=== PATIENT | female | born 1950 | race Caucasian/White ===

== ENCOUNTER 2017-05-23 17:13 | Inpatient (IN) | payer MEDICARE, MEDICAID ==
--- NOTE | 2017-05-23 17:58 | RAD ---
PORTABLE CHEST 05/23/17 PROVIDED CLINICAL HISTORY: Shortness of breath. FINDINGS: Comparison 04/30/16. The cardiac silhouette is somewhat obscured by what is presumably the diaphragm or possibly a large h iatal hernia. There is development of right hemithoracic air space disease involving much of the righ t lung. Bilateral pleural effusions are suspected. There is no evidence of pneumothorax. Atherosclero sis involves the aortic arch. IMPRESSION: 1. Development of right hemithoracic air space disease compatible with pneumonia in the appropri ate clinical context. 2. Abnormal appearance of the upper chest and lower abdomen of uncertain etiology and significan ce. Correlation with a lateral view is recommended. POS: [facility]
[2017-05-23 18:10] LABS: Hemoglobin 9.7 g/dL (12.0-16.0); Mean Corpuscular HGB CONC 31.5 g/dL (32.0-36.0); Mean Corpuscular Hemoglobin 30.9 pg (27.0-31.0); Mean Corpuscular Volume 98.1 fl (81.0-99.0); Platelet Count 382 thou/uL (130-400); RBC Distribution Width 15.3 % (11.5-14.5); Red Blood Cell (RBC) Count 3.14 mill/uL (4.20-5.40); White Blood Cell (WBC) Count 24.8 thou/uL (4.8-10.8)
[2017-05-23] MEDS ORDERED: methylPREDNISolone Sod Succ/PF 125 MG/2 ML VIAL ONE (18:19)
[2017-05-23] MEDS ORDERED: Water For Inject, Bacteriostat 30 ML ONE (18:19)
[2017-05-23 18:22] LABS: Lymphocytes 3 % (21-51); MDiff Complete? YES; Monocytes 1 % (0-10); Neutrophil 96 % (42-75); Ovalocytes SLIGHT = 2-5 cells (100X) (0-1/hpf); PLT Morphology Comment Appears Adequate; Polychromasia SLIGHT = 2-3 cells (100X) (0-2/hpf)
[2017-05-23 18:29] LABS: ALT (SGPT) 9 U/L (8-55); AST (SGOT) 9 U/L (5-34); Alkaline Phosphatase 84 U/L (40-150); Anion Gap 13 mmol/L (10-20); BUN (Urea Nitrogen) 13 mg/dL (9.8-20.1); Bilirubin, Total 0.3 mg/dL (0.2-1.2); CK (CPK) 26 U/L (29-168); Calc. Creatinine Clearance 0 mL/min (70-130); Calcium 8.6 mg/dL (7.8-10.44); Carbon Dioxide 33 mmol/L (23-31); Chloride 99 mmol/L (98-107); Estimated GFR-MDRD 75; Globulin 2.7 g/dL (2.4-3.5); Glucose 121 mg/dL (80-115); Protein, Total 5.7 g/dL (6.0-8.3); Sodium 142 mmol/L (136-145)
[2017-05-23 18:34] LABS: CKMB 2.3 ng/mL (0-6.6); Troponin I 0.045 ng/mL (< 0.028)
[2017-05-23 18:37] LABS: Potassium 2.9 mmol/L (3.5-5.1)
[2017-05-23] MEDS ORDERED: Piperacillin/Tazobactam 4.5 GM in Sodium Chloride 0.9% 100 ML IVPB SCH (21:15)
[2017-05-23 23:09] LABS: Troponin I 0.048 ng/mL (< 0.028)
[2017-05-24 00:43] VITALS: BMI 25.4
[2017-05-24 01:58] LABS: Troponin I 0.046 ng/mL (< 0.028)
[2017-05-24] MEDS ORDERED: Albuterol Sulfate 2.5 mg/3 ml Neb NEB PRN (02:56)
[2017-05-24] MEDS ORDERED: HYDROcodone/Acetaminophen 10/325 mg Tablet PO PRN (02:56)
[2017-05-24] MEDS ORDERED: Acetaminophen 325 MG TAB PO PRN (02:56)
[2017-05-24] MEDS: Ondansetron ODT 4 MG TAB PO PRN ×2 (03:27→20:33)
--- NOTE | 2017-05-24 04:57 | HP ---
PRIMARY CARE PHYSICIAN: Dr. Cale Kunz The patient does not have a english faculty member up here. She does have a bullard operator over at [facility]. DATE OF ADMISSION: 05/24/2017 TIME OF SERVICE: 0100 CHIEF COMPLAINT: Shortness of breath. HISTORY OF PRESENT ILLNESS: Ms. Bryan is a 67-year-old female with history of COPD, chronic hypoxe christiano respiratory failure, hyperlipidemia, hypertension, coronary artery disease, ongoing tobacco abuse , supraventricular tachycardia and a past history of head injury. The patient was recently hospitali zed from 05/05/2017 to 05/21/2017 over at [facility] and was discharged home on 0 05/21/2017 with oxygen, prednisone, antibiotics and her regular home medications. When she eft the hospital she was given a green oxygen tank to transport home in, I am assuming that home care or the oxygen company was supposed to meet her there and provide her the oxygen concentrato r and portable unit, but apparently that never happened. She became progressively more short of breath from 05/21/2017 until today and was brought to the [facility] department after she called EMS. Her oxygen tank per EMS report was empty. Medications were reviewed. She does not have her steroids, does not have her antibiotics and says th at somebody took her nebulizer, so she has not got any nebulizer treatments, steroids or antibiotics in the last few days either. She denies any fevers or chills. Does have a hot and cold spells. No nausea, vomiting, diarrhea, co nstipation. She is not having hemoptysis. She does have a chronic cough. PAST MEDICAL HISTORY: 1. COPD. 2. Chronic hypoxic respiratory failure. 3. Hyperlipidemia. 4. Hypertension. 5. Coronary artery disease. 6. Tobacco abuse. 7. Supraventricular tachycardia. 8. Past head injury. PAST SURGICAL HISTORY: 1. PTCA and stent placements. 2. Hysterectomy. 3. Back surgery in 1979. 4. Craniotomy 1969 for head injury and bleed. 5. Right leg surgery. 6. Cardiac ablation. 7. Foot surgery. 8. Bilateral wrist and hand surgery. HOME MEDICATIONS: That she is supposed to be on: 1. Tramadol 50 mg p.o. p.r.n. pain. 2. Aspirin 325 daily. 3. Albuterol nebs 2.5 mg nebulized q.4 hours p.r.n. 4. Advair 250/50 two puffs b.i.d. 5. Toprol-XL 50 mg daily. 6. Lisinopril 10 mg p.o. b.i.d. 7. Prednisone 10 mg daily on a taper. Of note, she has no prednisone, lisinopril, Toprol-XL, nebulizer for her albuterol, but does have her aspirin. ALLERGIES: NKDA. FAMILY HISTORY: Negative for clotting or bleeding disorder, no immune dysfunction. She has very lit tle help at home. SOCIAL HISTORY: Significant for half pack of cigarettes per day. She says she has quit, but does prakash ve an occasional cigarette. No alcohol or IV drug use. REVIEW OF SYSTEMS: A 10-point review of systems was performed, negative for all systems except as pe r HPI. Incidentally now she is back on nebulizer treatments, steroids, and oxygen. She is feeling much bett er now. PHYSICAL EXAMINATION: VITAL SIGNS: Temperature on arrival to the ER 98.5, pulse 108, blood pressure 191/47, respiratory ra te 24, satting 80% on room air, current temperature is 99.4, pulse 104, blood pressure 125/77, respir atory 18, satting 91-92% on 2 liters nasal cannula. GENERAL: She is awake. She is alert. She is oriented x3. She is a disheveled looking white female , appears to be in no acute distress. HEENT: Normocephalic and atraumatic. Pupils equal, round, react to light bilaterally, mucous membra wen are moist. There is no visible lesion. No thrush. Nasal cannula is in place. NECK: Supple. There is no lymphadenopathy, JVD or thyromegaly. She has normal carotid upstrokes bi laterally. I do not appreciate any bruits. LUNGS: Clear anteriorly. She has slightly poor inspiratory phase. 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 There is no overt wheezes or rhonchi heard. CARDIOVASCULAR: She is tachycardic, but regular. Normal S1 and S2. There is no S3 or S4. She has also a holosystolic murmur 2/6 at the apex, and a 3/6 systolic ejection murmur in the right upper shanelle rnal border. ABDOMEN: Soft, it is nontender, nondistended. She has no rebound, rigidity or guarding. There is g ood bowel sounds present. EXTREMITIES: No cyanosis or clubbing. Does have edema bilateral lower extremities from the mid tibi al level down, 1+ pitting. SKIN: Otherwise warm, moist and well perfused without any rashes or lesions. MUSCULOSKELETAL: Exam is normal to inspection. She has no inflamed joints. No deformities and no p alpable effusions. NEUROLOGIC: Cranial nerves II-XII are grossly intact. Speech pattern is completely normal. She has no focal deficits and has 5/5 strength in all 4 extremities. LABORATORY DATA: Sodium 142, potassium 2.9, chloride 99, bicarbonate 33, BUN 13, creatinine 0.76, an d glucose 121. Calcium is 8.6. The liver functions are fairly normal. Total protein slightly low at 5.7, albumin slightly low at 3. 0. CBC showed a white count of 24.8 thousand. She has 96% granulocytosis secondary to steroids. He moglobin 9.7, hematocrit 30.8, and platelet count is 392,000. Chest x-ray showed right hemithorax ai r space disease. She said she had right-sided pneumonia previously. ASSESSMENT AND PLAN: 1. Acute exacerbation of chronic obstructive pulmonary disease, secondary to not taking any medicati ons for whatever reason. We will put her back on Solu-Medrol 40 mg q.6h., q.4h. DuoNebs and q.2h. p. r.n. DuoNebs. Place her on antibiotics with Levofloxacin 500 mg daily. 2. Acute on chronic hypoxic respiratory failure: The patient back on 2 liters of oxygen with a satu ration improving. We will need to arrange her for home oxygen with portable device, a concentrator a nd a portable that she can carry. Once that is arranged, I think she may be able to go home today. 3. Hyperlipidemia. Continue medications. 4. Hypertension. Continue home medications. 5. Coronary artery disease, no chest pain or difficulty. We will continue her on Toprol-XL and her lisinopril. 6. Ongoing tobacco abuse, counseling was offered. She said that she is done this time. 7. Supraventricular tachycardia, status post ablation. She remains on Toprol-XL.
[2017-05-24 05:33] LABS: Anion Gap 12 mmol/L (10-20); BUN (Urea Nitrogen) 14 mg/dL (9.8-20.1); Calc. Creatinine Clearance 73 mL/min (70-130); Calcium 7.9 mg/dL (7.8-10.44); Carbon Dioxide 33 mmol/L (23-31); Chloride 100 mmol/L (98-107); Estimated GFR-MDRD 78; Glucose 127 mg/dL (80-115); Sodium 142 mmol/L (136-145)
[2017-05-24 05:38] LABS: Potassium 2.9 mmol/L (3.5-5.1)
[2017-05-24 05:54] LABS: Band 3 % (5-11); Hemoglobin 8.8 g/dL (12.0-16.0); Lymphocytes 5 % (21-51); MDiff Complete? YES; Mean Corpuscular HGB CONC 31.5 g/dL (32.0-36.0); Mean Corpuscular Hemoglobin 31.3 pg (27.0-31.0); Mean Corpuscular Volume 99.4 fl (81.0-99.0); Mean Platelet Volume 7.3 fL (7.4-10.4); Neutrophil 92 % (42-75); Nucleated RBC 1 % (0); PLT Morphology Comment Appears Adequate; Platelet Count 344 thou/uL (130-400); RBC Distribution Width 15.5 % (11.5-14.5); Red Blood Cell (RBC) Count 2.81 mill/uL (4.20-5.40); White Blood Cell (WBC) Count 25.3 thou/uL (4.8-10.8)
[2017-05-24] MEDS: Famotidine 20 MG TAB PO SCH ×2 (07:58→20:33)
[2017-05-24] MEDS: Lisinopril 10 MG TAB PO SCH ×2 (07:59→20:33)
[2017-05-24] MEDS: guaiFENesin ER 600 MG TAB PO SCH ×2 (07:59→20:33)
--- NOTE | 2017-05-24 09:39 | RAD ---
PA AND LATERAL OF THE CHEST: COMPARISON: Prior single view of the chest dated 05/23/17. FINDINGS: There are worsening bibasilar opacities suspicious for pneumonia. Patchy opacities within the right upper lobe also likely related to pneumonia. There is a large hiatal hernia. There are bilateral pl eural effusions. There is prominent thoracic calcification involving the aorta and coronary arteries . IMPRESSION: 1. Findings suspicious for multifocal pneumonia. 2. Small bilateral pleural effusions with moderate cardiomegaly. Component of congestive heart fail ure is not excluded. 3. Extensive pneumonia has worsened since the comparison dated 05/23/17. 4. Prominent hiatal hernia. POS: [facility]
--- NOTE | 2017-05-24 10:26 | CT ---
CT CHEST NONCONTRAST: History: Pneumonia. Comparison: 07-20-02 FINDINGS: A small amount of bilateral pleural fluid and bibasilar atelectasis are present. Patchy infiltrate is present throughout the right upper lobe. Less pronounced infiltrates present within the posterior as pect of the left lung apex. Nodular parenchymal opacity at the right lung base could represent a mass partially obscured by infil trate and/or atelectasis. Lack of contrast limits evaluation of other abnormalities. No bulky adenopathy is apparent. There is calcification in the arterial structures. A large lobulated gas and soft tissue density containing st ructure within the posterior mediastinum contains flocculent material. It likely represents a very la rge hiatal hernia. Remainder of the esophagus is dilated with gas. IMPRESSION: 1. Multifocal pneumonia. Small bilateral pleural effusions. Bibasilar atelectasis is likely related t o the pleural fluid and very large hiatal hernia. 2. Atherosclerosis. POS: [facility]
--- NOTE | 2017-05-24 11:42 | PDOC.PN ---
- Subjective Encounter Start Date: 05/24/17 Encounter Start Time: 09:30 Subjective: breathing better but still sob -: no chest pain or palp - Objective Resuscitation Status: Resuscitation Status FULL:Full Resuscitation MAR Reviewed: Yes Vital Signs & Weight: Vital Signs (12 hours) Temp Pulse Resp BP Pulse Ox 05/24/17 09:25 97.3 F L 96 16 05/24/17 06:49 96 12 05/24/17 04:00 98.2 F 100 18 136/80 95 05/24/17 03:38 97.6 F 104 H 18 05/24/17 00:47 97.6 F 104 H 18 94 L 05/24/17 00:38 97.6 F 104 H 18 148/84 H 94 L Weight Weight 143 lb I&O: 05/23/17 05/24/17 05/25/17 06:59 06:59 06:59 Intake Total 510 Output Total 600 Balance -90 Result Diagrams: 05/24/17 04:35 05/24/17 04:35 Phys Exam - Physical Examination HEENT: PERRLA, sclera anicteric Neck: no JVD, supple Respiratory: no rales, wheezing present Cardiovascular: RRR, no significant murmur Gastrointestinal: soft, non-tender, no distention, positive bowel sounds Musculoskeletal: no edema, pulses present Neurological: non-focal, moves all 4 limbs Psychiatric: A&O x 3 Dx/Plan (1) PNA (pneumonia) Code(s): J18.9 - PNEUMONIA, UNSPECIFIED ORGANISM Status: Acute Qualifiers: Pneumonia type: due to unspecified organism Laterality: bilateral (2) Acute on chronic respiratory failure with hypoxemia Code(s): J96.21 - ACUTE AND CHRONIC RESPIRATORY FAILURE WITH HYPOXIA Status: Acute (3) COPD exacerbation Code(s): J44.1 - CHRONIC OBSTRUCTIVE PULMONARY DISEASE W (ACUTE) EXACERBATION Status: Acute (4) Non compliance with medical treatment Code(s): Z91.19 - PATIENT'S NONCOMPLIANCE W OTH MEDICAL TREATMENT AND REGIMEN Status: Chronic (5) CAD (coronary artery disease) Code(s): I25.10 - ATHSCL HEART DISEASE OF [place] CORONARY ARTERY W/O ANG PCTRS Status: Chronic Qualifiers: Coronary Disease-Associated Artery/Lesion type: [place] artery [place] vs. transplanted heart: [place] heart Associated angina: without angina Qualified Code(s): I25.10 - Atherosclerotic heart disease of [place] coronary artery without angina pectoris (6) HLD (hyperlipidemia) Code(s): E78.5 - HYPERLIPIDEMIA, UNSPECIFIED Status: Chronic Qualifiers: Hyperlipidemia type: unspecified Qualified Code(s): E78.5 - Hyperlipidemia , unspecified (7) HTN (hypertension) Code(s): I10 - ESSENTIAL (PRIMARY) HYPERTENSION Status: Chronic Qualifiers: Hypertension type: essential hypertension Qualified Code(s): I10 - Essential (primary) hypertension - Plan was hospitalized for pna/copd flare from to at [facility] -: pulm consult, CT results noted -: tx to med floor, replace potassium -: levaquin, steroids, nebs -: PT to mobilize as tolerated, swing bed for 2 weeks * . Review of Systems - Medications/Allergies Allergies/Adverse Reactions: Allergies Allergy/AdvReac Type Severity Reaction Status Date / Time No Known Drug Allergies Allergy Verified 04/30/16 23:14 Medications: Current Medications Acetaminophen (Tylenol) 650 mg PO Q4H PRN PRN Reason: Headache/Fever or Pain Hydrocodone Bitart/Acetaminophen ([place] 10/325) 1 tab PO Q4H PRN PRN Reason: Severe Pain (7-10) Last Admin: 05/24/17 03:23 Dose: 1 tab Hydrocodone Bitart/Acetaminophen ([place] 5/325) 1 tab PO Q4H PRN PRN Reason: Moderate Pain (4-6) Albuterol Sulfate (Ventolin) 2.5 mg NEB Q2H PRN PRN Reason: Wheezing Albuterol/Ipratropium (Duoneb) 3 ml NEB [id number] AAMIR Last Admin: 05/24/17 06:49 Dose: 3 ml Famotidine (Pepcid) 20 mg PO BID [facility] Last Admin: 05/24/17 07:58 Dose: 20 mg Guaifenesin (Mucinex) 1,200 mg PO Q12HR [facility] Last Admin: 05/24/17 07:59 Dose: 1,200 mg Levofloxacin 500 mg/ Device 100 mls @ 100 mls/hr IVPB Q24HR [facility] Last Admin: 05/24/17 08:23 Dose: 100 mls Lisinopril (Zestril) 10 mg PO BID [facility] Last Admin: 05/24/17 07:59 Dose: 10 mg Methylprednisolone Sodium Succinate (Solu-Medrol) 40 mg IVP Q6HR [facility] Metoprolol Succinate (Toprol Xl) 50 mg PO DAILY [facility] Last Admin: 05/24/17 07:59 Dose: 50 mg Ondansetron HCl (Zofran Odt) 4 mg PO Q6H PRN PRN Reason: Nausea/Vomiting Last Admin: 05/24/17 03:27 Dose: 4 mg Potassium Chloride (K-Dur) 40 meq PO Q6H [facility] Sodium Chloride (Flush - Normal Saline) 10 ml IVF Q12HR [facility] Last Admin: 05/24/17 08:24 Dose: 10 ml Sodium Chloride (Flush - Normal Saline) 10 ml IVF PRN PRN PRN Reason: Saline Flush
[2017-05-24] MEDS: methylPREDNISolone Sod Succ/PF 125 MG/2 ML VIAL IVP SCH ×2 (11:50→19:32)
[2017-05-24] MEDS: Potassium Chloride 20 MEQ TAB PO SCH ×2 (13:48→19:33)
[2017-05-24] MEDS: Mometasone/Formoterol 120 PUFF INHALER INH SCH (18:15)
[2017-05-24] MEDS: HYDROcodone/Acetaminophen 5/325 mg Tablet PO PRN (20:34)
[2017-05-25] MEDS: Potassium Chloride 20 MEQ TAB PO SCH ×4 (00:07→21:05)
[2017-05-25] MEDS: methylPREDNISolone Sod Succ/PF 125 MG/2 ML VIAL IVP SCH (00:07)
[2017-05-25] MEDS: HYDROcodone/Acetaminophen 5/325 mg Tablet PO PRN ×4 (00:08→13:34)
[2017-05-25] MEDS: Mometasone/Formoterol 120 PUFF INHALER INH SCH ×2 (06:32→18:34)
[2017-05-25 08:49] LABS: Anion Gap 14 mmol/L (10-20); BUN (Urea Nitrogen) 20 mg/dL (9.8-20.1); Calc. Creatinine Clearance 64 mL/min (70-130); Calcium 8.4 mg/dL (7.8-10.44); Carbon Dioxide 30 mmol/L (23-31); Chloride 102 mmol/L (98-107); Estimated GFR-MDRD 66; Glucose 153 mg/dL (80-115); Potassium 5.6 mmol/L (3.5-5.1); Sodium 140 mmol/L (136-145)
[2017-05-25 08:59] LABS: Hemoglobin 8.7 g/dL (12.0-16.0); Mean Corpuscular HGB CONC 30.4 g/dL (32.0-36.0); Mean Corpuscular Hemoglobin 30.9 pg (27.0-31.0); Mean Platelet Volume 7.2 fL (7.4-10.4); Platelet Count 361 thou/uL (130-400); RBC Distribution Width 15.5 % (11.5-14.5); Red Blood Cell (RBC) Count 2.81 mill/uL (4.20-5.40); White Blood Cell (WBC) Count 26.2 thou/uL (4.8-10.8)
[2017-05-25] MEDS ORDERED: Prevnar 13-Val Conj/PF 0.5 ML SYRINGE IM ONE (09:00)
[2017-05-25] MEDS ORDERED: FLU VACC TS2017-18 (>65YR) 0.5 ML SYRINGE IM ONE (09:00)
[2017-05-25] MEDS ORDERED: Aspirin 81 mg Enteric Coated Tablet PO SCH (09:00)
[2017-05-25] MEDS: guaiFENesin ER 600 MG TAB PO SCH (09:03)
[2017-05-25] MEDS: Famotidine 20 MG TAB PO SCH (09:03)
[2017-05-25] MEDS: Lisinopril 10 MG TAB PO SCH (09:03)
[2017-05-25 09:23] LABS: MDiff Complete? YES
[2017-05-25 09:24] LABS: Anisocytosis SLIGHT = 6-15 cells (100X) (0-5/hpf); Band 2 % (5-11); Hypochromia SLIGHT = 6-15 cells (100X) (0-5/hpf); Lymphocytes 2 % (21-51); Monocytes 3 % (0-10); Neutrophil 93 % (42-75); Ovalocytes SLIGHT = 2-5 cells (100X) (0-1/hpf); PLT Morphology Comment Appears Adequate
--- NOTE | 2017-05-25 14:15 | CON ---
DATE OF CONSULTATION: 05/25/2017 CONSULTING PHYSICIAN: Dr. Roe REASON FOR CONSULTATION: Abnormal CT of the chest. HISTORY OF PRESENT ILLNESS: Ms. Bryan is a 67-year-old female who was admitted to the hospital yesterday with increasing shortness of breath. Up until this hospitalization she has received her care at [facility]. She was mostly recently hospitalized there between 05/05/2017 and 05/21. I have been able to obtain partial medical records from that hospitalization and she was initially admitted here under similar circumstances as this admission with the additional complaint of atrial fibrillation. She was seen by their Hospitalist group. She was seen in pulmonology by Dr. Truong. The patient underwent some type of surgical procedure which sounds to be repair of hiatal hernia, although we do not have any operative reports from [facility] at this time to review. She says she has continued on oxygen at home. She has been coughing and been generally short of breath since discharge. In performing this consultation, I have reviewed records from [place] during this hospitalization, records from [facility] during her last hospitalization, and spoken to the patient in detail. PAST MEDICAL HISTORY: 1. COPD. 2. Chronic hypoxic respiratory failure. 3. Hiatal hernia. 4. Hyperlipidemia. 5. Paroxysmal atrial fibrillation. 6. Coronary artery disease. 7. Hypertension. 8. Tobacco abuse. 9. Myocardial infarction. 10. Pulmonary hypertension. 11. Supraventricular tachycardia. 12. Traumatic brain injury. 13. Ischemic cardiomyopathy with EF 55-60%. PAST SURGICAL HISTORY: 1. Recent laparoscopy. 2. Coronary stent placement. 3. Hysterectomy. 4. Insertion of a metal plate in the head. 5. Tonsillectomy. 6. Extremity surgeries. SOCIAL HISTORY: Smokes 1-2 cigarettes per day, smoked more heavily up until about 3 months ago which she began cutting down, does not consume alcohol. Denies any history of illicit drug use. FAMILY MEDICAL HISTORY: Unremarkable for lung disease. ALLERGIES: None. MEDICATIONS PRIOR TO ADMISSION: Tramadol 100 mg q.i.d., prednisone 20 mg b.i.d. , guaifenesin 600 mg b.i.d., millimeter dose inhaler 2 puffs 6 hours as needed, pantoprazole 40 mg daily, Dulera 200/5 two puffs twice daily, metoprolol 50 mg daily, lisinopril 20 mg b.i.d., DuoNeb every 4 hours as needed, Omnicef 300 mg q.12 h, aspirin 81 mg daily. REVIEW OF SYSTEMS: The patient denies any fever or chills. She has cough, congestion, coughing up yellow sputum. GASTROINTESTINAL: No hematemesis, melena, hematochezia. GENITOURINARY: No hematuria, no dysuria. The remainder of 12 point review of systems is negative. PHYSICAL EXAMINATION: VITAL SIGNS: Temperature 97.6, pulse 74, blood pressure 146/50, O2 sat 94% on 3 liters, O2 sat 89%. GENERAL: She is an elderly female who appears much older than her stated age of 67. PSYCHIATRIC: From a psychiatric standpoint, she is alert and oriented and can give history without limitation. NEUROLOGIC: Cranial nerves II-XII are intact. She moves all 4 extremities. Sensation is intact throughout. HEENT: Sclerae are anicteric. Pupils reactive. Oropharynx clear. NECK: No adenopathy, no JVD, no bruits. LUNGS: Coarse rhonchi bilaterally with dullness to percussion at both bases. CARDIOVASCULAR: S1, S2 regular, without murmur. ABDOMEN: A midline laparotomy scars look to be well healed. The abdomen is soft and nontender. EXTREMITIES: No clubbing, cyanosis, or edema. SKIN: Shows no rashes, bruising or jaundice. LABORATORY DATA: White blood cell count 26.2, hemoglobin 8.7, hematocrit 28.7, platelet count 361. Sodium 140, potassium 5.6, chloride 102, CO2 30, BUN 20, creatinine 0.8, glucose 153. BNP is 357. I have personally reviewed the patient's CT of the chest in detail. I have also reviewed the radiologist's report. The patient has bilateral infiltrative changes, particularly the right side and right upper lobe area. She has bilateral effusions, right greater than left, but these effusions are fairly minimal in size. She has a large hiatal hernia, encompassing approximately 40% of the mediastinum inferiorly. ASSESSMENT: 1. The abnormalities on her CT scan in the lung parenchyma are most likely due to recurrent aspiration pneumonia. Her large hiatal hernia puts her at obvious risk for that. 2. Underlying chronic obstructive pulmonary disease. 3. Tobacco abuse. 4. Multiple other medical problems as listed above. RECOMMENDATIONS: 1. It would be nice to know what type of surgery she actually had. If this was a true hiatal hernia reduction, then it would appear that she has dehisced in her stomach and has now relocated into the chest. If this was not a hiatal hernia reduction, then she is likely to experience continued respiratory problems until this is repaired. 2. Anaerobic coverage would be necessary with something like Zosyn as I do not think Levaquin would completely cover everything. 3. I agree with steroids and nebulization treatments. 4. Unfortunately, this patient's problem is going to be very difficult to repair. 70 minutes of time spent on this consultation, with greater than 50% of that time spent on counselling and coordination of care OTF
[2017-05-25] MEDS ORDERED: Iopamidol 370 76% 50 ML VIAL FS ONE (14:20)
[2017-05-25] MEDS ORDERED: ISOVUE-370 76%-LOCM 1 ML ONE (14:20)
[2017-05-25] MEDS ORDERED: MD-Gastroview 120 ML BOT ONE (14:23)
--- NOTE | 2017-05-25 15:09 | PDOC.PN ---
- Subjective Encounter Start Date: 05/25/17 Encounter Start Time: 15:00 Subjective: no abd pain or sob -: thinks she might be choking -: very poor historian - Objective Resuscitation Status: Resuscitation Status FULL:Full Resuscitation MAR Reviewed: Yes Vital Signs & Weight: Vital Signs (12 hours) Temp Pulse Pulse Resp BP BP Pulse Ox 05/25/17 10:05 69 05/25/17 09:31 05/25/17 09:03 146/50 H 05/25/17 08:00 97.6 F 74 20 94 L 05/25/17 07:27 97.6 F 74 20 146/50 H 94 L 05/25/17 04:09 75 20 94 L 05/25/17 04:00 98.0 F 74 20 127/77 93 L 05/25/17 03:17 97 Pulse Ox Pulse Ox Pulse Ox 05/25/17 10:05 89 L 05/25/17 09:31 89 L 91 L 88 L 05/25/17 09:03 05/25/17 08:00 05/25/17 07:27 05/25/17 04:09 05/25/17 04:00 05/25/17 03:17 Weight Weight 143 lb I&O: 05/24/17 05/25/17 05/26/17 06:59 06:59 06:59 Intake Total 510 784 340 Output Total 600 Balance -90 784 340 Result Diagrams: 05/25/17 08:21 05/25/17 08:21 Phys Exam - Physical Examination HEENT: PERRLA, moist MMs Neck: no JVD, supple Respiratory: no wheezing, no rales rhonchi+ Cardiovascular: RRR, no significant murmur Gastrointestinal: soft, non-tender, no distention, positive bowel sounds Musculoskeletal: no edema, pulses present Neurological: non-focal, moves all 4 limbs Psychiatric: A&O x 3 Dx/Plan (1) PNA (pneumonia) Code(s): J18.9 - PNEUMONIA, UNSPECIFIED ORGANISM Status: Acute Qualifiers: Pneumonia type: aspiration pneumonia Laterality: bilateral (2) Acute on chronic respiratory failure with hypoxemia Code(s): J96.21 - ACUTE AND CHRONIC RESPIRATORY FAILURE WITH HYPOXIA Status: Acute (3) COPD exacerbation Code(s): J44.1 - CHRONIC OBSTRUCTIVE PULMONARY DISEASE W (ACUTE) EXACERBATION Status: Acute (4) Non compliance with medical treatment Code(s): Z91.19 - PATIENT'S NONCOMPLIANCE W OTH MEDICAL TREATMENT AND REGIMEN Status: Chronic (5) CAD (coronary artery disease) Code(s): I25.10 - ATHSCL HEART DISEASE OF [place] CORONARY ARTERY W/O ANG PCTRS Status: Chronic Qualifiers: Coronary Disease-Associated Artery/Lesion type: [place] artery [place] vs. transplanted heart: [place] heart Associated angina: without angina Qualified Code(s): I25.10 - Atherosclerotic heart disease of [place] coronary artery without angina pectoris (6) HLD (hyperlipidemia) Code(s): E78.5 - HYPERLIPIDEMIA, UNSPECIFIED Status: Chronic Qualifiers: Hyperlipidemia type: unspecified Qualified Code(s): E78.5 - Hyperlipidemia , unspecified (7) HTN (hypertension) Code(s): I10 - ESSENTIAL (PRIMARY) HYPERTENSION Status: Chronic Qualifiers: Hypertension type: essential hypertension Qualified Code(s): I10 - Essential (primary) hypertension (8) Hiatal hernia Code(s): K44.9 - DIAPHRAGMATIC HERNIA WITHOUT OBSTRUCTION OR GANGRENE Status: Acute Comment: recent robotic fundoplication done by Dr.David Perez this month - Plan d/w Dr.David Perez, wants a upper gi series after ng tube suction of sto -: -mach contents, this is to see if the band of fundoplication has slipped ou -: has recurrent asp due to large hiatal hernia, d/w -: is on levaquin, steroids, nebs -: to amb as tolerated. Records from [facility] reviewed * . Review of Systems - Medications/Allergies Allergies/Adverse Reactions: Allergies Allergy/AdvReac Type Severity Reaction Status Date / Time No Known Drug Allergies Allergy Verified 04/30/16 23:14 Medications: Current Medications Acetaminophen (Tylenol) 650 mg PO Q4H PRN PRN Reason: Headache/Fever or Pain Hydrocodone Bitart/Acetaminophen ([place] 5/325) 1 tab PO Q4H PRN PRN Reason: Moderate Pain (4-6) Last Admin: 05/25/17 13:34 Dose: 1 tab Albuterol/Ipratropium (Duoneb) 3 ml NEB [id number] AAMIR Last Admin: 05/25/17 13:41 Dose: 3 ml Albuterol/Ipratropium (Duoneb) 3 ml NEB Q2H PRN PRN Reason: SOB &/or Wheezing Aspirin (Ecotrin) 81 mg PO DAILY [facility] Last Admin: 05/25/17 09:04 Dose: 81 mg Famotidine (Pepcid) 20 mg PO BID [facility] Last Admin: 05/25/17 09:03 Dose: 20 mg Guaifenesin (Mucinex) 1,200 mg PO Q12HR [facility] Last Admin: 05/25/17 09:03 Dose: 1,200 mg Levofloxacin 500 mg/ Device 100 mls @ 100 mls/hr IVPB Q24HR [facility] Last Admin: 05/25/17 09:02 Dose: 100 mls Piperacillin Sod/Tazobactam (Sod 3.375 gm/ Sodium Chloride) 100 mls @ 200 mls/ hr IVPB Q6HR [facility] Lisinopril (Zestril) 10 mg PO BID [facility] Last Admin: 05/25/17 09:03 Dose: 10 mg Methylprednisolone Sodium Succinate (Solu-Medrol) 20 mg IVP Q8HR [facility] Last Admin: 05/25/17 14:46 Dose: 20 mg Metoprolol Succinate (Toprol Xl) 50 mg PO DAILY [facility] Last Admin: 05/25/17 09:03 Dose: 50 mg Mometasone Furoate/Formoterol Fumar (Dulera 200 Mcg/5 Mcg Inhaler) 2 puff INH BID [facility] Last Admin: 05/25/17 06:32 Dose: 2 puff Ondansetron HCl (Zofran Odt) 4 mg PO Q6H PRN PRN Reason: Nausea/Vomiting Last Admin: 05/24/17 20:33 Dose: 4 mg Potassium Chloride (K-Dur) 40 meq PO Q6HR [facility] Last Admin: 05/25/17 13:34 Dose: 40 meq Sodium Chloride (Flush - Normal Saline) 10 ml IVF Q12HR [facility] Last Admin: 05/25/17 09:02 Dose: 10 ml Sodium Chloride (Flush - Normal Saline) 10 ml IVF PRN PRN PRN Reason: Saline Flush Last Admin: 05/25/17 05:44 Dose: 10 ml
[2017-05-25] MEDS ORDERED: Piperacillin/Tazobactam 3.375 GM in Sodium Chloride 0.9% 100 ML IVPB SCH (18:00)
--- NOTE | 2017-05-25 18:02 | RAD ---
UPPER GI: 05/25/17 HISTORY: Obstruction. Recent surgery. COMPARISON: None. FINDINGS: The patient was unable to tolerate the majority of the exam. Patient was put in a 45 degree position. The patient was given some enteric contrast through the enteric tube for which the tip was at the up per one third esophagus. The tube could not get further down to the dilated stomach. A single contrast gastrografin was given. There is marked narrowing of the esophagus due to extrinsic mass effect form sliding hiatal hernia. The undersurface of the Erika fundoplication is felt to be seen. There is a crescentic air flid level along the right side of the stomach that does not communic ate with the lumen, and a contained perforation is of concern. IMPRESSION: 1. Severely limited examination due to patient's inability to tolerate much contrast at one time due to the obstructive process and the patient's inability to lay flat or standup. There is a large slidi ng hiatal hernia causing extrinsic mass effect upon the distal esophagus. The fundoplication is above the diaphragm and felt to be attenuated but intact. 2. Air fluid level along the right side of the hiatal hernia which does not communicate with the lume n suggesting contained perforation. 3. Contrast does not exit the thorax after 20 minutes suggesting at least partial gastric outlet obst ruction of the hernia at the diaphragm. CODE: CR. Dr. Perez FLuoro time: 4.5 min POS: [facility]
[2017-05-25] MEDS ORDERED: Acetaminophen 650 MG Suppository PR PRN (20:37)
[2017-05-25] MEDS ORDERED: Ondansetron HCl/PF 4 MG/2 ML Vial IVP PRN (20:39)
[2017-05-25] MEDS ORDERED: Morphine 4 MG/ML Carpuject SLOW IVP PRN (20:40)
[2017-05-25] MEDS ORDERED: D5 0.9% NS w/ 20 mEq KCl 1,000 ML IV SCH (20:45)
[2017-05-25] MEDS ORDERED: Pantoprazole 40 MG VIAL IVP SCH (21:00)
--- NOTE | 2017-05-25 21:01 | CT ---
CT CHEST WITH CONTRAST CT ABDOMEN WITH CONTRAST CT PELVIS WITH CONTRAST 05/25/17 HISTORY: Recent surgery. Epigastric pain. Recent fundoplication. Evaluate for slipping. COMPARISON: CT chest without contrast 05/24/17. FINDINGS: Cavitary pneumonia in the right upper lobe. Extensive air space opacities upper lobes as well as the lower lobes. There is contrast within a large sliding hiatal hernia. The stomach is kinked to the right of this la rge hernia. There is what appears to be the fundoplication in situ near the GE junction with shoulder ing seen on coronal series 400, images 74-81. About 50% of the stomach is within the thoracic cavity through a defect in the left hemidiaphragm. The hiatus is only approximately 3.1 cm. There is contras t extending throughout the stomach and small bowel. There are large bilateral pleural effusions. Pulm onary trunk measures 33 mm. Aortic size is normal. There are multiple hypodensities of both kidneys m any of which do not measure fluid attenuation and can be seen as suspicious. There is lateral rotatio n of the right kidney. Urinary bladder is unremarkable. No dilated loops of large or small bowel. The aortic contour is not aneurysmal with dense calcifications. Moderate reverse S-shaped scoliosis thoracolumbar spine. Along the right side of the gastric border is an air fluid level which does not have contrast. This i s concerning for focal perforation. IMPRESSION: 1. Concern for a perforation along the right stomach border containing air fluid level and does not contain contrast. This measures 2.3 cm transverse x 7.8 cm AP x 6 cm craniocaudad dimension. This is adjacent to large sliding hiatal hernia. The fundoplication appears to be intact. 2. Large bilateral layering pleural effusions. 3. Cavitary pneumonia right upper lobe. 4. Multiple renal hypodensities which do not measure fluid attenuation are suspicious. Followup renal protocol MRI is recommended. 5. Superior pole right kidney appears to be a solid mass measuring up to 30 Hounsfield units and 13 mm suspicious for renal cell carcinoma. 6. Atrophy of the right gluteus medius and minimus and anat muscles. 7. Focal saccular dilatation of the infrarenal abdominal aorta measuring 2.7 x 2.5 cm in transve rse x 2.6 cm in craniocaudad length. Code LILI Perez POS: HOME
[2017-05-25] MEDS ORDERED: Morphine 2 MG/ML SYRINGE SLOW IVP PRN (21:09)
[2017-05-25 21:27] VITALS: BP 153/82; TEMP 97.9
--- NOTE | 2017-05-25 22:28 | PDOC.EVN ---
Event Note - Event Note Event Note: Pt has been seen and examined at bedside, pt is clinically stable, pt has possible stomach perforation as per radiology report that could be related to previous surgery, case discussed with hospitalist service at [facility] , and they have accepted the transfer , for Surgery-Dr Lr or colleague to see pt for further management. Pt stable for transfer.
--- NOTE | 2017-05-26 20:33 | DIS ---
DATE OF ADMISSION: 05/24/2017 DATE OF DISCHARGE: 05/25/2017 DISCHARGE DISPOSITION: To [facility]. PRIMARY DISCHARGE DIAGNOSES: Possible perforation of stomach, aspiration pneumonia, acute on chronic respiratory failure with hypoxemia, chronic obstructive pulmonary disease exacerbation, coronary artery disease, dyslipidemia, hypertension, recent robotic fundoplication with hiatal hernia repair done by Dr. Be Perez at [facility]. PROCEDURES DONE DURING HOSPITALIZATION: The patient has had CT chest done which showed bilateral infiltrates with multifocal pneumonia, was also a very large hiatal hernia with bilateral pleural effusions. Upper GI series done at the request of Dr. Lr, the surgeon at [facility] was very limited due to patient's inability to tolerate contrast at one time. There was a large sliding hiatal hernia based on the limited pictures causing extrinsic mass effect upon the distal esophagus. The fundoplication was above the diaphragm and was attenuated but intact. Air fluid level along the right side of the hiatal hernia which does not communicate with the lumen suggesting contained perforation. Contrast did not exit the thorax after 20 minutes suggesting at least partial gastric outlet obstruction. CT of the chest, abdomen and pelvis with IV contrast done showed a possible perforation along the right stomach border containing air fluid level and does not contain contrast and this measures 2.3 cm transverse by 7.8 cm AP x 6 cm craniocaudal dimension. This is adjacent to large sliding hiatal hernia. The fundoplication appears to be intact. Large bilateral layering pleural effusions , cavitary pneumonia in the right upper lobe. Patient has multiple renal hypodensities with superior pole of right kidney, solid mass measuring 30 HU and 13 mm in size, suspicious for renal cell carcinoma as well. There was atrophy of right gluteus medius and minimus and anat muscles. There was also infrarenal saccular focal dilation of abdominal aorta measuring 2.7 x 2.5 x 2.6 cm. Blood cultures x2 no growth. Had a white count of 24,000 on the day of admission with 96% neutrophils, H and H 9 and 30, platelet count was 382. Troponin I was indeterminate with peaking up to 0.04, BNP 644, CK-MB 2.3, albumin is 3.0. DISCHARGE MEDICATIONS: Patient is on IV fluids with 20 mEq of potassium, Zosyn 3.375 grams q.6 hourly, DuoNebs q.4 hourly, Protonix 40 mg IV q.12 hourly. The patient is kept n.p.o. ALLERGIES: No known drug allergies. DISCHARGE PLAN: The patient is being discharged to [facility] for further care. She needs to follow up with Dr. Be Perez, the general surgeon there. BRIEF COURSE DURING HOSPITALIZATION: Patient initially got admitted on the with the patient coming to ER with complaints of shortness of breath. The patient was recently discharged on the from [facility] after being hospitalized there from the of this month. She had atrial fibrillation with RVR and had a large hiatal hernia with suspicion for volvulus of the stomach and had a robotic repair of the same. The patient had bilateral patchy infiltrates with white count of 24 on arrival here. She was also on prednisone and it was unclear if she had sepsis. Nevertheless, the patient was placed on IV antibiotics and has had consultation with Dr. Casanova for Pulmonology. In view of patient's infiltrates suspicious for aspiration pneumonia with finding of stomach in her CT chest, I had called Dr. Be Perez and informed him about the findings. The patient subsequently has had upper GI series and a CT of the chest, abdomen, and pelvis done. There was suspicion of perforation of the right border of stomach with air fluid level and the decision was made to transfer patient back to [facility] where general surgeon Dr. Be Perez was. She was transferred around 10:30 in the night. This was arranged through the Transfer Center. She is currently on Zosyn and DuoNebs. She has been kept n.p.o. Please note patient has bilateral pleural effusion and albumin of 3.0 and has not been eating healthy due to above-mentioned factors. She would benefit from likely TPN or aggressive nutrition if she is allowed to eat post-procedure. Her overall prognosis is guarded as well. Please see a face to face documentation for the day of discharge on [employer]. OTF
--- NOTE | 2017-06-02 14:16 | EKG ---
Test Reason : Blood Pressure : / mmHG Vent. Rate : 104 BPM Atrial Rate : 104 BPM P-R Int : 140 ms QRS Dur : 098 ms QT Int : 356 ms P-R-T Axes : 042 009 076 degrees QTc Int : 468 ms Sinus tachycardia Possible Left atrial enlargement Cannot rule out Inferior infarct , age undetermined Abnormal ECG Baseline Artifact Present Confirmed by PAMELA JAMSE, ISATU ([id number]), web content editor GUSTAVO URBANO ([id number]) on 06/02/2017 2:15:45 PM Referred By: Confirmed By:ISATU SANTIAGO MD
== END 2017-05-25 22:40 | disposition short-term general hospital (02) | DRG 177 ==
LOC: ERS 17:13 → 2NO 23:55 → T4-B 05-24 17:03
PROVIDERS: ADMIT Internal Medicine Infectious Disease; ATTEND Internal Medicine Infectious Disease
DX: J69.0 Pneumonitis due to inhalation of food and vomit (principal); J96.21 Acute and chronic respiratory failure with hypoxia; I27.20 Pulmonary hypertension, unspecified; I47.1 Supraventricular tachycardia; J44.1 Chronic obstructive pulmonary disease with (acute) exacerbation; K31.1 Adult hypertrophic pyloric stenosis; I48.0 Paroxysmal atrial fibrillation; E78.5 Hyperlipidemia, unspecified; I10 Essential (primary) hypertension; I25.10 Atherosclerotic heart disease of native coronary artery without angina pectoris; F17.210 Nicotine dependence, cigarettes, uncomplicated; Z87.820 Personal history of traumatic brain injury; Z95.5 Presence of coronary angioplasty implant and graft; Z79.82 Long term (current) use of aspirin; Z79.51 Long term (current) use of inhaled steroids; Z91.14 Patient's other noncompliance with medication regimen; Z98.890 Other specified postprocedural states; I25.5 Ischemic cardiomyopathy; K44.9 Diaphragmatic hernia without obstruction or gangrene; N28.89 Other specified disorders of kidney and ureter
CPT/HCPCS: 36415; 71045; 71046; 71250; 71260; 74177; 74247; 80048; 80053; 82550; 82553; 83735; 83880; 84484; 85025; 87040; 93005; 94640; 94760; 96365; 96367; 96375; 99406; A4216; C9113; G8978-GP-CK; G8979-GP-CI; G8987-GO-CJ; G8988-GO-CI; J1956; J2270; J2543; J2920; J2930; J3370; J7050; J7620; Q0162